=== PATIENT | female | born 1945 | race Asian ===

== ENCOUNTER 2019-10-31 10:26 | Outpatient (CLI) | payer MEDICARE ==
[2019-10-31 15:20] LABS: BASOPHILS # (AUTO) 0.1 10^3/uL (0.0-0.1); BASOPHILS % (AUTO) 0.9 %; EOSINOPHILS # (AUTO) 0.1 10^3/uL (0.0-0.7); EOSINOPHILS % (AUTO) 2.6 %; HGB - HEMOGLOBIN 13.6 g/dL (12.0-16.0); LYMPHOCYTES # (AUTO) 1.7 10^3/uL (1.5-3.5); LYMPHOCYTES % (AUTO) 32.2 %; MEAN CORPUSCULAR HEMOGLOBIN 30.4 pg (27.0-31.0); MEAN CORPUSCULAR HGB CONC 31.3 g/dL (32.0-36.0); MEAN CORPUSCULAR VOLUME 97.1 fL (81.0-99.0); MEAN PLATELET VOLUME 11.1 fL (7.9-10.8); MONOCYTES # (AUTO) 0.4 10^3/uL (0.0-1.0); MONOCYTES % (AUTO) 7.4 %; NEUTROPHILS # (AUTO) 3.1 10^3/uL (1.5-6.6); NEUTROPHILS % (AUTO) 56.5 %; PLT - PLATELET COUNT 278 10^3/uL (130-450); RED BLOOD COUNT 4.48 10^6/uL (4.20-5.40); WHITE BLOOD COUNT 5.4 x10^3/uL (4.8-10.8)
[2019-10-31 15:42] LABS: ALBUMIN 4.6 g/dL (3.2-5.5); ALBUMIN/GLOBULIN RATIO 1.8 (1.0-2.2); ALKALINE PHOSPHATASE 56 IU/L (42-121); ALT ALANINE AMINOTRANSFERASE 18 IU/L (10-60); AST ASPARTATE AMINOTRANSFERASE 23 IU/L (10-42); BILIRUBIN,TOTAL 0.5 mg/dL (0.2-1.0); BUN - BLOOD UREA NITROGEN 17 mg/dL (6-20); CALCIUM 9.5 mg/dL (8.5-10.3); CARBON DIOXIDE - CO2 32 mmol/L (21-32); CHLORIDE 102 mmol/L (101-111); CHOL/HDL RATIO 2.6 (<4.4); CHOLESTEROL 179 mg/dL; CREATININE 0.8 mg/dL (0.4-1.0); GLUCOSE 92 mg/dL (70-100); HDL CHOLESTEROL 70 mg/dL; LDL CHOLESTEROL,CALCULATED 94 mg/dL; LDL/HDL RATIO 1.3 (<4.4); SODIUM 142 mmol/L (135-145); TOTAL PROTEIN 7.2 g/dL (6.7-8.2); VLDL CHOLESTEROL 15 mg/dL
== END 2019-10-31 10:27 | disposition home or self-care (01) ==
LOC: LAB.S 10:26
PROVIDERS: ATTEND Registered Nurse
DX: Z13.228 Encounter for screening for other metabolic disorders (principal); Z13.29 Encounter for screening for other suspected endocrine disorder; Z13.0 Encounter for screening for diseases of the blood and blood-forming organs and certain disorders involving the immune mechanism
CPT/HCPCS: 36415; 80053; 80061; 83721; 84443; 85025

== ENCOUNTER 2020-10-13 09:32 | Outpatient (CLI) | payer MEDICARE ==
[2020-10-13 15:23] LABS: BASOPHILS # (AUTO) 0.1 10^3/uL (0.0-0.1); BASOPHILS % (AUTO) 0.8 %; EOSINOPHILS # (AUTO) 0.2 10^3/uL (0.0-0.7); EOSINOPHILS % (AUTO) 3.5 %; HCT - HEMATOCRIT 44.1 % (37.0-47.0); HGB - HEMOGLOBIN 14.5 g/dL (12.0-16.0); LYMPHOCYTES # (AUTO) 1.8 10^3/uL (1.5-3.5); LYMPHOCYTES % (AUTO) 28.6 %; MEAN CORPUSCULAR HEMOGLOBIN 31.5 pg (27.0-31.0); MEAN CORPUSCULAR HGB CONC 32.9 g/dL (32.0-36.0); MEAN CORPUSCULAR VOLUME 95.7 fL (81.0-99.0); MEAN PLATELET VOLUME 10.9 fL (7.9-10.8); MONOCYTES # (AUTO) 0.5 10^3/uL (0.0-1.0); MONOCYTES % (AUTO) 8.6 %; NEUTROPHILS # (AUTO) 3.6 10^3/uL (1.5-6.6); NEUTROPHILS % (AUTO) 58.3 %; PLT - PLATELET COUNT 281 10^3/uL (130-450); RED BLOOD COUNT 4.61 10^6/uL (4.20-5.40); RED CELL DISTRIBUTION WIDTH 12.3 % (12.0-15.0); WHITE BLOOD COUNT 6.3 x10^3/uL (4.8-10.8)
[2020-10-13 15:40] LABS: ALBUMIN 4.5 g/dL (3.2-5.5); ALBUMIN/GLOBULIN RATIO 1.7 (1.0-2.2); ALKALINE PHOSPHATASE 63 IU/L (42-121); ALT ALANINE AMINOTRANSFERASE 18 IU/L (10-60); AST ASPARTATE AMINOTRANSFERASE 19 IU/L (10-42); BILIRUBIN,TOTAL 0.6 mg/dL (0.2-1.0); BUN - BLOOD UREA NITROGEN 18 mg/dL (6-20); CALCIUM 9.9 mg/dL (8.5-10.3); CARBON DIOXIDE - CO2 33 mmol/L (21-32); CHLORIDE 103 mmol/L (101-111); CHOLESTEROL 213 mg/dL; CREATININE 0.8 mg/dL (0.4-1.0); GFR - MDRD 70 (>89); GLUCOSE 96 mg/dL (70-100); HDL CHOLESTEROL 72 mg/dL; LDL CHOLESTEROL,CALCULATED 115 mg/dL; LDL/HDL RATIO 1.6 (<4.4); SODIUM 145 mmol/L (135-145); TOTAL PROTEIN 7.2 g/dL (6.7-8.2); TRIGLYCERIDES 132 mg/dL; VLDL CHOLESTEROL 26 mg/dL
[2020-10-13 15:49] LABS: THYROID STIMULATING HORMONE 1.56 uIU/mL (0.34-5.60)
== END 2020-10-13 09:33 | disposition home or self-care (01) ==
LOC: LAB.S 09:32
PROVIDERS: ATTEND Registered Nurse
DX: E78.5 Hyperlipidemia, unspecified (principal); R03.0 Elevated blood-pressure reading, without diagnosis of hypertension; M50.10 Cervical disc disorder with radiculopathy, unspecified cervical region; G50.0 Trigeminal neuralgia; G43.909 Migraine, unspecified, not intractable, without status migrainosus
CPT/HCPCS: 36415; 80053; 80061; 83721; 84443; 85025

== ENCOUNTER 2020-12-24 14:30 | Outpatient (CLI) | payer MEDICARE | END 2020-12-24 14:31 | disposition home or self-care (01) | LOC: RT 14:30 | PROVIDERS: ATTEND Otolaryngology | DX: Z01.810 Encounter for preprocedural cardiovascular examination (principal) | CPT/HCPCS: 93005 ==

== ENCOUNTER 2021-01-08 16:09 | Outpatient (CLI) | payer MEDICARE | END 2021-01-08 16:10 | disposition home or self-care (01) | LOC: COV 16:09 | PROVIDERS: ATTEND Otolaryngology | DX: Z01.812 Encounter for preprocedural laboratory examination (principal); Z20.822 Contact with and (suspected) exposure to COVID-19 ==

== ENCOUNTER 2021-09-23 13:33 | Outpatient (CLI) | payer MEDICARE ==
[2021-09-23 19:51] LABS: BASOPHILS % (AUTO) 0.5 %; EOSINOPHILS # (AUTO) 0.1 10^3/uL (0.0-0.7); EOSINOPHILS % (AUTO) 1.3 %; HCT - HEMATOCRIT 44.9 % (37.0-47.0); HGB - HEMOGLOBIN 14.5 g/dL (12.0-16.0); LYMPHOCYTES # (AUTO) 1.8 10^3/uL (1.5-3.5); LYMPHOCYTES % (AUTO) 24.7 %; MEAN CORPUSCULAR HEMOGLOBIN 31.5 pg (27.0-31.0); MEAN CORPUSCULAR HGB CONC 32.3 g/dL (32.0-36.0); MEAN CORPUSCULAR VOLUME 97.6 fL (81.0-99.0); MEAN PLATELET VOLUME 10.8 fL (7.9-10.8); MONOCYTES # (AUTO) 0.6 10^3/uL (0.0-1.0); MONOCYTES % (AUTO) 7.4 %; NEUTROPHILS # (AUTO) 4.9 10^3/uL (1.5-6.6); NEUTROPHILS % (AUTO) 65.7 %; PLT - PLATELET COUNT 298 10^3/uL (130-450); RED CELL DISTRIBUTION WIDTH 12.7 % (12.0-15.0); WHITE BLOOD COUNT 7.4 x10^3/uL (4.8-10.8)
[2021-09-23 20:08] LABS: ALBUMIN 4.5 g/dL (3.2-5.5); ALBUMIN/GLOBULIN RATIO 1.6 (1.0-2.2); ALKALINE PHOSPHATASE 55 IU/L (42-121); ALT ALANINE AMINOTRANSFERASE 18 IU/L (10-60); AST ASPARTATE AMINOTRANSFERASE 23 IU/L (10-42); BUN - BLOOD UREA NITROGEN 16 mg/dL (6-20); CALCIUM 9.8 mg/dL (8.5-10.3); CARBON DIOXIDE - CO2 30 mmol/L (21-32); CHLORIDE 98 mmol/L (101-111); CHOL/HDL RATIO 2.4 (<4.4); CHOLESTEROL 180 mg/dL; CREATININE 0.8 mg/dL (0.4-1.0); GFR - MDRD 70 (>89); GLUCOSE 88 mg/dL (70-100); HDL CHOLESTEROL 75 mg/dL; LDL CHOLESTEROL,CALCULATED 89 mg/dL; LDL/HDL RATIO 1.2 (<4.4); POTASSIUM 4.2 mmol/L (3.5-5.0); SODIUM 139 mmol/L (135-145); TOTAL PROTEIN 7.3 g/dL (6.7-8.2); TRIGLYCERIDES 79 mg/dL; VLDL CHOLESTEROL 16 mg/dL
[2021-09-23 20:18] LABS: THYROID STIMULATING HORMONE 1.23 uIU/mL (0.34-5.60)
== END 2021-09-23 13:34 | disposition home or self-care (01) ==
LOC: LAB.S 13:33
PROVIDERS: ATTEND Registered Nurse
DX: I10 Essential (primary) hypertension (principal); J32.9 Chronic sinusitis, unspecified; E78.5 Hyperlipidemia, unspecified; G50.0 Trigeminal neuralgia; G43.909 Migraine, unspecified, not intractable, without status migrainosus
CPT/HCPCS: 36415; 80053; 80061; 83721; 84443; 85025

== ENCOUNTER 2022-10-04 11:09 | Outpatient (CLI) | payer MEDICARE ==
[2022-10-04 14:58] LABS: BASOPHILS # (AUTO) 0.1 10^3/uL (0.0-0.1); BASOPHILS % (AUTO) 0.8 %; EOSINOPHILS # (AUTO) 0.2 10^3/uL (0.0-0.7); EOSINOPHILS % (AUTO) 2.5 %; HCT - HEMATOCRIT 43.2 % (37.0-47.0); HGB - HEMOGLOBIN 14.1 g/dL (12.0-16.0); LYMPHOCYTES % (AUTO) 30.9 %; MEAN CORPUSCULAR HEMOGLOBIN 31.5 pg (27.0-31.0); MEAN CORPUSCULAR HGB CONC 32.6 g/dL (32.0-36.0); MEAN CORPUSCULAR VOLUME 96.4 fL (81.0-99.0); MEAN PLATELET VOLUME 10.8 fL (7.9-10.8); MONOCYTES # (AUTO) 0.5 10^3/uL (0.0-1.0); MONOCYTES % (AUTO) 7.7 %; NEUTROPHILS # (AUTO) 3.8 10^3/uL (1.5-6.6); NEUTROPHILS % (AUTO) 57.8 %; PLT - PLATELET COUNT 259 10^3/uL (130-450); RED BLOOD COUNT 4.48 10^6/uL (4.20-5.40); RED CELL DISTRIBUTION WIDTH 12.4 % (12.0-15.0); WHITE BLOOD COUNT 6.5 x10^3/uL (4.8-10.8)
[2022-10-04 16:01] LABS: ALBUMIN 4.3 g/dL (3.2-5.5); ALBUMIN/GLOBULIN RATIO 1.5 (1.0-2.2); ALKALINE PHOSPHATASE 51 IU/L (42-121); ALT ALANINE AMINOTRANSFERASE 22 IU/L (10-60); AST ASPARTATE AMINOTRANSFERASE 26 IU/L (10-42); BILIRUBIN,TOTAL 0.5 mg/dL (0.2-1.0); BUN - BLOOD UREA NITROGEN 18 mg/dL (6-20); CALCIUM 9.5 mg/dL (8.5-10.3); CARBON DIOXIDE - CO2 31 mmol/L (21-32); CHLORIDE 101 mmol/L (101-111); CHOL/HDL RATIO 2.5 (<4.4); CHOLESTEROL 172 mg/dL; CREATININE 0.8 mg/dL (0.4-1.0); GFR - MDRD 70 (>89); GLUCOSE 98 mg/dL (70-100); HDL CHOLESTEROL 69 mg/dL; LDL CHOLESTEROL,CALCULATED 92 mg/dL; LDL/HDL RATIO 1.3 (<4.4); SODIUM 140 mmol/L (135-145); TOTAL PROTEIN 7.1 g/dL (6.7-8.2); TRIGLYCERIDES 56 mg/dL; VLDL CHOLESTEROL 11 mg/dL
[2022-10-04 16:03] LABS: THYROID STIMULATING HORMONE 1.32 uIU/mL (0.34-5.60)
== END 2022-10-04 11:10 | disposition home or self-care (01) ==
LOC: LAB.S 11:09
PROVIDERS: ATTEND Registered Nurse
DX: I10 Essential (primary) hypertension (principal); E78.5 Hyperlipidemia, unspecified; Z79.899 Other long term (current) drug therapy
CPT/HCPCS: 36415; 80053; 80061; 83721; 84443; 85025

== ENCOUNTER 2023-01-04 13:40 | Outpatient (CLI) | payer MEDICARE ==
--- NOTE | 2023-01-04 18:14 | XRAY Report ---
PROCEDURE: Hip w/Pelvis 2-3V LT INDICATIONS: GREATER TROCHANTERIC BURSITIS. LEFT TECHNIQUE: AP pelvis with lateral view(s) of the left hip(s). COMPARISON: None. FINDINGS: Bones: No fractures or dislocations. No suspicious bony lesions. Possible/equivocal joint space n arrowing of both hips. Soft tissues: No suspicious soft tissue calcifications . IMPRESSION: No acute bony abnormality. If there remains a high clinical concern for fracture, consider cross-sect ional imaging now. If pain persists, consider repeat x-ray in 10-14 days or cross-sectional imaging. Reviewed by: Mitchell Mckeon MD on 01/04/2023 6:13 PM PDT Approved by: Mitchell Mckeon MD on 01/04/2023 6:13 PM PDT Station ID: [id number]
== END 2023-01-04 23:59 | disposition home or self-care (01) ==
LOC: DI.S 13:40
PROVIDERS: ATTEND Emergency Medicine
DX: M70.62 Trochanteric bursitis, left hip (principal)

== ENCOUNTER 2023-09-28 10:40 | Outpatient (CLI) | payer MEDICARE ==
[2023-09-28 15:22] LABS: ALBUMIN 4.4 g/dL (3.2-5.5); ALBUMIN/GLOBULIN RATIO 2.3 (1.0-2.2); ALKALINE PHOSPHATASE 59 IU/L (42-121); ALT ALANINE AMINOTRANSFERASE 17 IU/L (10-60); AST ASPARTATE AMINOTRANSFERASE 22 IU/L (10-42); BILIRUBIN,TOTAL 0.4 mg/dL (0.2-1.0); BUN - BLOOD UREA NITROGEN 19 mg/dL (6-20); CALCIUM 9.9 mg/dL (8.5-10.3); CARBON DIOXIDE - CO2 34 mmol/L (21-32); CHLORIDE 104 mmol/L (101-111); CHOLESTEROL 142 mg/dL; CREATININE 0.7 mg/dL (0.6-1.3); GFR - MDRD 81 (>89); GLUCOSE 83 mg/dL (74-104); HDL CHOLESTEROL 72 mg/dL; LDL CHOLESTEROL,CALCULATED 52 mg/dL; LDL/HDL RATIO 0.7 (<4.4); POTASSIUM 4.1 mmol/L (3.5-4.5); SODIUM 141 mmol/L (135-145); TOTAL PROTEIN 6.3 g/dL (6.4-8.9); TRIGLYCERIDES 89 mg/dL (48-352); VLDL CHOLESTEROL 18 mg/dL
[2023-09-28 15:28] LABS: BASOPHILS # (AUTO) 0.1 10^3/uL (0.0-0.1); EOSINOPHILS # (AUTO) 0.3 10^3/uL (0.0-0.7); EOSINOPHILS % (AUTO) 3.9 %; LYMPHOCYTES # (AUTO) 1.9 10^3/uL (1.5-3.5); LYMPHOCYTES % (AUTO) 26.8 %; MEAN CORPUSCULAR HEMOGLOBIN 31.3 pg (27.0-31.0); MEAN CORPUSCULAR HGB CONC 32.6 g/dL (32.0-36.0); MEAN CORPUSCULAR VOLUME 96.2 fL (81.0-99.0); MEAN PLATELET VOLUME 11.3 fL (7.9-10.8); MONOCYTES # (AUTO) 0.6 10^3/uL (0.0-1.0); MONOCYTES % (AUTO) 8.7 %; NEUTROPHILS # (AUTO) 4.2 10^3/uL (1.5-6.6); NEUTROPHILS % (AUTO) 59.3 %; PLT - PLATELET COUNT 264 10^3/uL (130-450); RED BLOOD COUNT 4.47 10^6/uL (4.20-5.40); RED CELL DISTRIBUTION WIDTH 12.9 % (12.0-15.0); WHITE BLOOD COUNT 7.1 x10^3/uL (4.8-10.8)
[2023-09-28 15:46] LABS: THYROID STIMULATING HORMONE 1.13 uIU/mL (0.34-5.60)
== END 2023-09-28 10:41 | disposition home or self-care (01) ==
LOC: LAB.S 10:40
PROVIDERS: ATTEND Registered Nurse
DX: I10 Essential (primary) hypertension (principal); E78.5 Hyperlipidemia, unspecified; Z13.29 Encounter for screening for other suspected endocrine disorder
CPT/HCPCS: 36415; 80053; 80061; 83721; 84443; 85025